=== PATIENT | female | born 1975 | race Caucasian/White ===

== ENCOUNTER 2019-05-15 08:18 | Emergency (ER) | payer MEDICAID ==
[~2019-05-15] VITALS: Ht 154.9 cm; Wt 100.0 kg
[2019-05-15 08:26] VITALS: BP 137/67; PULSE 74; RESP 18; Ht 154.9 cm; Wt 100.0 kg
[2019-05-15] MEDS ORDERED: PHENAZOPYRIDINE 100 MG TAB PO ONE (09:00)
--- NOTE | 2019-05-15 09:04 | ERD ---
ER Documentation Chief Complaint Chief Complaint pt is bib family with c/o painful urination for a few days HPI Patient is a 43 years old female with no known past medical history presenting to the clinic with dysuria, urinary urgency, urinary frequency, fever, chills, suprapubic pain X 2 days. Patient denies take any OTC medication stating that her pain has worsened as of now. Patient denies vaginal discharge or bleeding. ROS All systems reviewed and are negative except as per history of present illness. Allergies Allergies: Coded Allergies: No Known Allergy (Unverified , 12/25/13) PMhx/Soc History of Surgery: Yes (c/s,appendectomy) Anesthesia Reaction: No Hx Neurological Disorder: No Hx Respiratory Disorders: No Hx Cardiac Disorders: No Hx Psychiatric Problems: No Hx Miscellaneous Medical Probl: Yes (migraine harding) Hx Alcohol Use: No Hx Substance Use: No Hx Tobacco Use: Yes Smoking Status: Never smoker FmHx Family History: No diabetes, No coronary disease, No other Physical Exam Vitals Vital Signs Date Temp Pulse Resp B/P (MAP) Pulse Ox O2 O2 Flow FiO2 Time Delivery Rate 05/15/19 98.3 74 18 137/67 98 08:26 (90) Physical Exam Const: No acute distress Head: Atraumatic Eyes: Normal Conjunctiva Resp: Clear to auscultation bilaterally Cardio: Regular rate and rhythm, no murmurs Abd: Soft, non tender, non distended. Normal bowel sounds. Negative Mullins sign, Rovsing sign, McBurney's point tenderness, guarding, rebound tenderness, Regulo sign, Martell Martinez sign. Skin: No petechiae or rashes Back: No midline or flank tenderness. Left CVAT. Neur: Awake and alert Psych: Normal Mood and Affect Result Diagram: 05/15/1990205/15/19902 Results 24 hrs Laboratory Tests Test 05/15/19 09:03 05/15/19 09:05 05/15/19 09:11 White Blood Count 10.9 10^3/ul Red Blood Count 4.77 10^6/ul Hemoglobin 14.3 g/dl Hematocrit 43.8 % Mean Corpuscular Volume 91.8 fl Mean Corpuscular Hemoglobin 30.0 pg Mean Corpuscular 32.6 g/dl Hemoglobin Concent Red Cell Distribution Width 13.1 % Platelet Count 308 10^3/UL Mean Platelet Volume 10.2 fl Immature Granulocytes % 0.500 % Neutrophils % 75.7 % Lymphocytes % 17.5 % Monocytes % 4.3 % Eosinophils % 1.6 % Basophils % 0.4 % Nucleated Red Blood Cells % 0.0 /100WBC Immature Granulocytes # 0.050 10^3/ul Neutrophils # 8.3 10^3/ul Lymphocytes # 1.9 10^3/ul Monocytes # 0.5 10^3/ul Eosinophils # 0.2 10^3/ul Basophils # 0.0 10^3/ul Nucleated Red Blood Cells # 0.0 10^3/ul Sodium Level 146 mmol/L Potassium Level 4.0 mmol/L Chloride Level 108 mmol/L Carbon Dioxide Level 26 mmol/L Anion Gap 12 Blood Urea Nitrogen 13 mg/dl Creatinine 0.66 mg/dl Est Glomerular Filtrat > 60 mL/min Rate mL/min Glucose Level 121 mg/dl Calcium Level 9.4 mg/dl Total Bilirubin 0.7 mg/dl Direct Bilirubin 0.00 mg/dl Indirect Bilirubin 0.7 mg/dl Aspartate Amino 34 IU/L Transf (AST/SGOT) Alanine 24 IU/L Aminotransferase (ALT/SGPT) Alkaline Phosphatase 145 IU/L Total Protein 9.0 g/dl Albumin 4.7 g/dl Globulin 4.30 g/dl Albumin/Globulin Ratio 1.09 Urine Color YELLOW Urine Clarity CLOUDY Urine pH 5.0 Urine Specific [place] 1.019 Urine Ketones NEGATIVE mg/dL Urine Nitrite NEGATIVE mg/dL Urine Bilirubin NEGATIVE mg/dL Urine Urobilinogen NEGATIVE mg/dL Urine Leukocyte Esterase 3+ Renetta/ul Urine Microscopic RBC > 182 /HPF Urine Microscopic WBC > 182 /HPF Urine Squamous Epithelial Cells FEW /HPF Urine Bacteria FEW /HPF Urine Hemoglobin 2+ mg/dL Urine Glucose NEGATIVE mg/dL Urine Total Protein NEGATIVE mg/dl POC Beta HCG, Qualitative NEGATIVE Current Medications Medications Dose Sig/Dajuan Start Time Status Last (Trade) Ordered Route PRN Stop Time Admin Dose Reason Admin 200 mg ONCE ONCE 05/15/19 DC 05/15/19 Phenazopyridi PO 09:00 09:15 ne HCl 05/15/19 09:01 (Pyridium) Procedures/MDM Patient was seen and evaluated for dysuria without complications. CBC, urinalysis revealed mild leukocytosis, leukocyte esterase, urine WBC. Patient is experiencing UTI. patient was given Pyridium 200 mg in ED. Patient stable ready for discharge. Follow-up with PCP. Patient will be discharged with Pyridium and Macrobid. Departure Diagnosis: Primary Impression: Dysuria Additional Impression: UTI (urinary tract infection) Urinary tract infection type: site unspecified Hematuria presence: without hematuria Qualified Codes: N39.0 - Urinary tract infection, site not specified Condition: Stable Patient Instructions: Dysuria, Understanding Urinary Tract Infections (UTIs) Referrals: [facility] Additional Instructions: Paciente aconseja volver a Departamento de urgencias inmediatamente para s ntomas nuevos o que empeoran . Paciente aconseja posteriores con el PCP en 2-3 whitney . Paciente verbaliza la comprehensin y est de acuerdo con el tratamiento y el curso de accin. Si el paciente no tiene ninguna de atencin primaria pueden seguir con [facility] [address] [place] [address] [facility] + [address] [address] WANG SEXTON PA-C May 15, 2019 09:04
[2019-05-15] MEDS ORDERED: NITR-58 PO (10:15)
[2019-05-15] MEDS ORDERED: PHEN-538 PO (10:15)
== END 2019-05-15 10:25 | disposition home or self-care (01) ==
LOC: FTE 08:18
DX: N39.0 Urinary tract infection, site not specified (principal)
CPT/HCPCS: 80053; 81001; 81025; 85025; Z7502; Z7610; 99283